=== PATIENT | female | born 1960 | race Caucasian/White ===

== ENCOUNTER 2022-11-10 12:05 | Emergency (ER) | payer MEDICAID ==
[~2022-11-10] VITALS: Ht 167.6 cm; Wt 95.5 kg
[~2022-11-10 12:05] MED LIST: ATOR10TA70 PO; LEVO25TA7 PO; LISI5TAB22 PO; LORA-512 PO; TRIAMCINOLONE OINT; VENL150C4 PO; [UNRECOGNIZED DRUG - CODE] RC; [UNRECOGNIZED DRUG - OTHER]
[2022-11-10 12:23] LABS: BASOPHILS # (AUTO) 0.1 X10'3 (0-0.2); BASOPHILS % (AUTO) 0.7 % (0-1); EOSINOPHILS # (AUTO) 0.1 X10'3 (0-0.9); EOSINOPHILS % (AUTO) 0.6 % (0-6); HEMATOCRIT 38.6 % (35.0-45.0); HEMOGLOBIN 12.5 g/dl (12.0-16.0); LYMPHOCYTES # (AUTO) 4.4 X10'3 (1.1-4.8); LYMPHOCYTES % (AUTO) 33.6 % (21-51); MEAN CORPUSCULAR HEMOGLOBIN 28.7 PG (27.0-31.0); MEAN CORPUSCULAR HGB CONC 32.4 g/dL (33.0-36.5); MEAN CORPUSCULAR VOLUME 88.3 FL (78-98); MEAN PLATELET VOLUME 8.2 FL (7.4-10.4); MONOCYTES # (AUTO) 0.6 X10'3 (0-0.9); MONOCYTES % (AUTO) 4.4 % (2-12); NEUTROPHILS % (AUTO) 60.7 % (42-75); PLATELET COUNT 371 X10'3 (140-440); RED BLOOD COUNT 4.37 X10'6 (4.20-5.60); RED CELL DISTRIBUTION WIDTH 14.5 % (11.5-14.5); WHITE BLOOD COUNT 13.2 X10'3 (4.5-11.0)
[2022-11-10 12:32] LABS: ALANINE AMINOTRANSFERASE 18 U/L (12-78); ALBUMIN 4.1 G/DL (3.4-5.0); ALBUMIN/GLOBULIN RATIO 1.1 (1.1-1.5); ALKALINE PHOSPHATASE 62 IU/L (46-116); ANION GAP 11 (8-16); ASPARTATE AMINO TRANSFERASE 19 U/L (10-37); BILIRUBIN,TOTAL 0.3 MG/DL (0.1-1.0); BLOOD UREA NITROGEN 34 MG/DL (7-18); CHLORIDE 105 MMOL/L (99-107); GLUCOSE 115 MG/DL (70-104); POTASSIUM 4.4 MMOL/L (3.5-5.1); SODIUM 139 MMOL/L (135-145); TOTAL CARBON DIOXIDE 22.9 MMOL/L (24-32); TOTAL PROTEIN 7.8 G/DL (6.4-8.2); eGFR 30 ML/MIN
[2022-11-10 15:49] VITALS: BP 129/49
[2022-11-10] MEDS ORDERED: NAPR-996 PO (16:43)
== END 2022-11-10 17:41 | disposition home or self-care (01) ==
LOC: ER 12:05
DX: R07.89 Other chest pain (principal); R00.2 Palpitations; M25.511 Pain in right shoulder; G43.909 Migraine, unspecified, not intractable, without status migrainosus; E78.00 Pure hypercholesterolemia, unspecified; I10 Essential (primary) hypertension; F32.9 Major depressive disorder, single episode, unspecified; F12.90 Cannabis use, unspecified, uncomplicated; Z72.89 Other problems related to lifestyle; Z79.899 Other long term (current) drug therapy; Z87.442 Personal history of urinary calculi; Z88.2 Allergy status to sulfonamides; Z88.5 Allergy status to narcotic agent; Z88.8 Allergy status to other drugs, medicaments and biological substances
CPT/HCPCS: 36415; 71045; 73030; 80053; 83735; 83880; 84484; 85025; 93005; 99285

== ENCOUNTER 2023-06-30 13:11 | Emergency (ER) | payer MEDICAID ==
[~2023-06-30] VITALS: Ht 167.6 cm; Wt 86.1 kg
[~2023-06-30 13:11] MED LIST changes: +NAPR-996 PO
[2023-06-30 14:43] LABS: BASOPHILS # (AUTO) 0.1 X10'3 (0-0.2); BASOPHILS % (AUTO) 0.7 % (0-1); EOSINOPHILS # (AUTO) 0.1 X10'3 (0-0.9); EOSINOPHILS % (AUTO) 0.9 % (0-6); HEMOGLOBIN 11.1 g/dl (12.0-16.0); LYMPHOCYTES # (AUTO) 3.2 X10'3 (1.1-4.8); MEAN CORPUSCULAR HEMOGLOBIN 28.9 PG (27.0-31.0); MEAN CORPUSCULAR HGB CONC 32.7 g/dL (33.0-36.5); MEAN CORPUSCULAR VOLUME 88.3 FL (78-98); MEAN PLATELET VOLUME 8.9 FL (7.4-10.4); MONOCYTES # (AUTO) 0.7 X10'3 (0-0.9); MONOCYTES % (AUTO) 5.5 % (2-12); NEUTROPHILS # (AUTO) 8.1 X10'3 (1.8-7.7); NEUTROPHILS % (AUTO) 66.9 % (42-75); PLATELET COUNT 345 X10'3 (140-440); RED BLOOD COUNT 3.85 X10'6 (4.20-5.60); RED CELL DISTRIBUTION WIDTH 14.3 % (11.5-14.5); WHITE BLOOD COUNT 12.1 X10'3 (4.5-11.0)
[2023-06-30 14:59] LABS: ALANINE AMINOTRANSFERASE 15 U/L (12-78); ALBUMIN 4.3 G/DL (3.4-5.0); ALBUMIN/GLOBULIN RATIO 1.2 (1.1-1.5); ALKALINE PHOSPHATASE 67 IU/L (46-116); ANION GAP 9 (8-16); ASPARTATE AMINO TRANSFERASE 22 U/L (10-37); BILIRUBIN,TOTAL 0.3 MG/DL (0.1-1.0); BLOOD UREA NITROGEN 21 MG/DL (7-18); BUN/CREATININE RATIO 12.7 (10.0-20.0); CHLORIDE 99 MMOL/L (99-107); CREATININE 1.65 MG/DL (0.40-0.90); GLUCOSE 106 MG/DL (70-104); POTASSIUM 4.3 MMOL/L (3.5-5.1); SODIUM 134 MMOL/L (135-145); TOTAL CARBON DIOXIDE 26.2 MMOL/L (24-32); TOTAL PROTEIN 7.9 G/DL (6.4-8.2); eCRCL 32 ML/MIN; eGFR 31 ML/MIN
[2023-06-30 15:17] VITALS: TEMP 98.9
[2023-06-30] MEDS ORDERED: normal saline 500ml IV soln 500 ML IV ONE (15:45)
[2023-06-30 17:32] LABS: MAGNESIUM 1.9 MG/DL (1.5-2.4)
[2023-06-30 18:35] VITALS: BP 154/68; PULSE 76; RESP 18; O2SAT 99
== END 2023-06-30 18:38 | disposition home or self-care (01) ==
LOC: ER 13:11
DX: E83.52 Hypercalcemia (principal); F41.9 Anxiety disorder, unspecified; F32.9 Major depressive disorder, single episode, unspecified; R00.2 Palpitations; G43.909 Migraine, unspecified, not intractable, without status migrainosus; E78.00 Pure hypercholesterolemia, unspecified; I10 Essential (primary) hypertension; F12.90 Cannabis use, unspecified, uncomplicated; Z87.442 Personal history of urinary calculi; Z72.89 Other problems related to lifestyle; Z88.2 Allergy status to sulfonamides; Z88.8 Allergy status to other drugs, medicaments and biological substances; Z79.899 Other long term (current) drug therapy
CPT/HCPCS: 36415; 80053; 82330; 83735; 83970; 84484; 85025; 93005; 96360; 96361; 99284; J7030; J7040

== ENCOUNTER 2024-09-11 12:27 | Inpatient (IN) | payer MEDICARE, MEDICAID ==
[~2024-09-11] VITALS: Ht 167.6 cm; Wt 80.5 kg
[~2024-09-11 12:27] MED LIST changes: +ACET-75 PO; +AMLO10TA13 PO; -ATOR10TA70 PO; +HYDR-3717 PO; +HYDRALAZINE 10 MG PO; -LEVO25TA7 PO; +LISI40TA13 PO; -LISI5TAB22 PO; +MAGN400T52 PO; -NAPR-996 PO; +TRAZ-251 PO; -VENL150C4 PO; +VENL225T3 PO; +[UNRECOGNIZED DRUG - CODE] PR; -[UNRECOGNIZED DRUG - CODE] RC; -[UNRECOGNIZED DRUG - OTHER]
[2024-09-11 13:21] LABS: BILIRUBIN,URINE NEGATIVE (Neg); CLARITY,URINE CLEAR (Clear); COLOR,URINE YELLOW (Yellow); GLUCOSE, URINE NEGATIVE (Neg); KETONES,URINE NEGATIVE (Neg); LEUKOCYTE ESTERASE ,URINE NEGATIVE (Neg); NITRITES, URINE NEGATIVE (Neg); OCCULT BLOOD,URINE NEGATIVE (Neg); PH,URINE 5.5 (4.8-8.0); PROTEIN,URINE TRACE mg/dl (Neg); UROBILINOGEN,URINE 0.2 E.U/dL (0.2-1.0)
[2024-09-11] MEDS: LORazepam 1 MG tablet PO STA (13:21)
[2024-09-11 13:25] LABS: UA COLLECTION TYPE CLN CATCH MIDSTREAM
[2024-09-11 13:28] LABS: BACTERIA,URINE FEW /HPF (Neg); RBC,URINE 0-2 /HPF (0-2); SQUAMOUS EPITHELIAL CELL,UR FEW /LPF (FEW); WBC,URINE NONE SEEN /HPF (0-4)
[2024-09-11 13:33] LABS: BASOPHILS # (AUTO) 0.1 X10'3 (0-0.2); BASOPHILS % (AUTO) 0.7 % (0-1); EOSINOPHILS # (AUTO) 0.1 X10'3 (0-0.9); EOSINOPHILS % (AUTO) 0.4 % (0-6); HEMATOCRIT 34.1 % (35.0-45.0); HEMOGLOBIN 11.2 g/dl (12.0-16.0); LYMPHOCYTES # (AUTO) 2.3 X10'3 (1.1-4.8); LYMPHOCYTES % (AUTO) 15.9 % (21-51); MEAN CORPUSCULAR HEMOGLOBIN 28.1 PG (27.0-31.0); MEAN CORPUSCULAR HGB CONC 32.9 g/dL (33.0-36.5); MEAN CORPUSCULAR VOLUME 85.2 FL (78-98); MEAN PLATELET VOLUME 8.3 FL (7.4-10.4); MONOCYTES # (AUTO) 0.7 X10'3 (0-0.9); MONOCYTES % (AUTO) 5.1 % (2-12); NEUTROPHILS # (AUTO) 11.3 X10'3 (1.8-7.7); NEUTROPHILS % (AUTO) 77.9 % (42-75); PLATELET COUNT 331 X10'3 (140-440); RED CELL DISTRIBUTION WIDTH 18.1 % (11.5-14.5); WHITE BLOOD COUNT 14.4 X10'3 (4.5-11.0)
[2024-09-11] MEDS ORDERED: DIPH25CA83 PO (13:36)
[2024-09-11] MEDS ORDERED: CALC0.2536 PO (13:36)
[2024-09-11] MEDS ORDERED: LAMO25TA72 PO (13:36)
[2024-09-11] MEDS ORDERED: SERT25TA PO (13:36)
[2024-09-11 13:51] LABS: ALANINE AMINOTRANSFERASE 46 U/L (12-78); ALBUMIN 4.2 G/DL (3.4-5.0); ALBUMIN/GLOBULIN RATIO 1.1 (1.1-1.5); ALKALINE PHOSPHATASE 91 IU/L (46-116); ANION GAP 14 (8-16); ASPARTATE AMINO TRANSFERASE 23 U/L (10-37); BILIRUBIN,TOTAL 0.3 MG/DL (0.1-1.0); BLOOD UREA NITROGEN 53 MG/DL (7-18); BUN/CREATININE RATIO 30.1 (10.0-20.0); CALCIUM 9.1 MG/DL (8.5-10.1); CHLORIDE 106 MMOL/L (99-107); CREATININE 1.76 MG/DL (0.40-0.90); GLUCOSE 92 MG/DL (70-104); POTASSIUM 4.6 MMOL/L (3.5-5.1); SODIUM 138 MMOL/L (135-145); TOTAL CARBON DIOXIDE 18.3 MMOL/L (24-32); TOTAL PROTEIN 8.1 G/DL (6.4-8.2); eCRCL 30 ML/MIN; eGFR 29 ML/MIN
[2024-09-11 14:00] LABS: HCG SERUM QL NEGATIVE
[2024-09-11 14:01] LABS: ETHANOL < 10 MG/DL (<10)
[2024-09-11] MEDS ORDERED: acetaminophen 325mg tablet PO PRN (14:30)
[2024-09-11] MEDS ORDERED: diphenhydrAMINE 25mg capsule PO PRN (14:30)
[2024-09-11 14:33] LABS: URINE AMPHETAMINE SCREEN NEGATIVE (Neg); URINE BARBITUATE SCREEN NEGATIVE (Neg); URINE BENZODIAZEPINES SCREEN NEGATIVE (Neg); URINE CANNABINOID SCREEN NEGATIVE (Neg); URINE COCAINE SCREEN NEGATIVE (Neg); URINE METHADONE SCREEN NEGATIVE (Neg); URINE OPIATE SCREEN NEGATIVE (Neg); URINE PHENCYCLIDINE SCREEN NEGATIVE (Neg)
[2024-09-11] MEDS: acetaminophen 325mg tablet PO PRN (15:28)
[2024-09-11] MEDS: LORazepam 1 MG tablet PO ONE (19:13)
[2024-09-11 20:30] VITALS: BP 120/61; PULSE 99; RESP 16; TEMP 98.5; O2SAT 98
[2024-09-11] MEDS ORDERED: mag hydrox/Alum hydrox/simeth 30ml oral suspension PO PRN (20:45)
[2024-09-11] MEDS ORDERED: magnesium hydroxide 30ml (MOM) UD suspension PO PRN (20:45)
[2024-09-11 21:00] VITALS: PULSE 88
[2024-09-11] MEDS ORDERED: LAMOTRIGINE 25 MG PO SCH (21:00)
[2024-09-11] MEDS: traZODone 50mg tablet PO SCH (21:43)
[2024-09-11] MEDS: hyDRALAzine 10mg tablet PO SCH (21:44)
[2024-09-11 21:51] VITALS: RESP 16; O2SAT 98
[2024-09-12 07:00] VITALS: RESP 16; O2SAT 98
[2024-09-12] MEDS: amLODIPine 5mg tablet PO SCH (07:43)
[2024-09-12] MEDS: calcitriol 0.25mcg capsule PO SCH (07:43)
[2024-09-12] MEDS: loratadine 10mg tablet PO SCH (07:43)
[2024-09-12] MEDS: sertraline 25mg tablet PO SCH (07:43)
[2024-09-12] MEDS: lisinopril 20mg tablet PO SCH (07:44)
[2024-09-12 08:00] VITALS: BP 111/57; PULSE 96; RESP 16; TEMP 97.6; O2SAT 98
[2024-09-12] MEDS: acetaminophen 325mg tablet PO PRN (10:45)
[2024-09-12 11:04] LABS: CHOL/HDL RATIO 2.9 (0.00-4.99); CHOLESTEROL 186 MG/DL (0-200); HDL CHOLESTEROL 65 MG/DL (35-60); LDL CHOLESTEROL 85 MG/DL (50-100); TRIGLYCERIDES 148 MG/DL (20-135)
[2024-09-12 11:16] LABS: HEMOGLOBIN A1C 5.4 % (4.5-6.2)
[2024-09-12] MEDS: LORazepam 1 MG tablet PO ONE (17:07)
[2024-09-12] MEDS: lactose-reduced food (Ensure Enlive) - 237ml bottle PO SCH (18:00)
[2024-09-12 19:00] VITALS: RESP 17; O2SAT 97; O2SAT 99
[2024-09-12] MEDS: loperamide 2mg capsule PO PRN (19:14)
[2024-09-12 19:26] VITALS: BP 128/48; PULSE 99; RESP 17; TEMP 97.8; O2SAT 98
[2024-09-12] MEDS: gabapentin 300mg capsule PO SCH (20:57)
[2024-09-13 07:00] VITALS: RESP 12; O2SAT 99
[2024-09-13] MEDS: LORazepam 1 MG tablet PO SCH (07:52)
[2024-09-13 08:00] VITALS: BP 113/58; PULSE 96; RESP 12; TEMP 97.5; O2SAT 99
[2024-09-13 08:19] LABS: HBSAG SCREEN Negative (Negative); HEP B CORE AB, IGM Negative (Negative); HEP B CORE AB, TOT Negative (Negative); HEP B SURF AB Non Reactive (.)
[2024-09-13 08:32] LABS: BASOPHILS # (AUTO) 0.1 X10'3 (0-0.2); BASOPHILS % (AUTO) 0.7 % (0-1); EOSINOPHILS # (AUTO) 0.2 X10'3 (0-0.9); EOSINOPHILS % (AUTO) 1.6 % (0-6); HEMATOCRIT 34.2 % (35.0-45.0); HEMOGLOBIN 11.1 g/dl (12.0-16.0); LYMPHOCYTES # (AUTO) 3.1 X10'3 (1.1-4.8); LYMPHOCYTES % (AUTO) 29.5 % (21-51); MEAN CORPUSCULAR HEMOGLOBIN 27.7 PG (27.0-31.0); MEAN CORPUSCULAR HGB CONC 32.4 g/dL (33.0-36.5); MEAN CORPUSCULAR VOLUME 85.6 FL (78-98); MEAN PLATELET VOLUME 8.6 FL (7.4-10.4); MONOCYTES # (AUTO) 0.8 X10'3 (0-0.9); MONOCYTES % (AUTO) 7.5 % (2-12); NEUTROPHILS # (AUTO) 6.5 X10'3 (1.8-7.7); NEUTROPHILS % (AUTO) 60.7 % (42-75); PLATELET COUNT 319 X10'3 (140-440); RED BLOOD COUNT 3.99 X10'6 (4.20-5.60); RED CELL DISTRIBUTION WIDTH 18.2 % (11.5-14.5); WHITE BLOOD COUNT 10.6 X10'3 (4.5-11.0)
[2024-09-13 08:57] LABS: CHOL/HDL RATIO 3.1 (0.00-4.99); CHOLESTEROL 180 MG/DL (0-200); FREE T4 (FREE THYROXINE) 0.77 NG/DL (0.73-1.40); HDL CHOLESTEROL 59 MG/DL (35-60); LDL CHOLESTEROL 80 MG/DL (50-100); THYROID STIMULATING HORMONE 2.23 ulU/ml (0.34-4.50); TRIGLYCERIDES 178 MG/DL (20-135)
[2024-09-13] MEDS: sertraline 25mg tablet PO ONE (13:02)
[2024-09-13] MEDS: hydrOXYzine 25 MG tablet PO PRN (18:54)
[2024-09-13 19:00] VITALS: RESP 17; O2SAT 98
[2024-09-13 20:00] VITALS: BP 142/86; PULSE 70; RESP 17; TEMP 97.6; O2SAT 98
[2024-09-13] MEDS: LORazepam 0.5 MG tablet PO SCH (20:34)
[2024-09-13] MEDS: propranolol 10mg tablet PO SCH (20:39)
[2024-09-14 07:00] VITALS: RESP 16; O2SAT 99
[2024-09-14] MEDS: sertraline 25mg tablet PO SCH (07:34)
[2024-09-14 08:00] VITALS: BP 122/42; PULSE 93; RESP 16; TEMP 97.1; O2SAT 99
[2024-09-14 19:30] VITALS: BP 122/54; PULSE 98; RESP 16; TEMP 98.2; O2SAT 96
[2024-09-15 07:00] VITALS: RESP 16; O2SAT 100
[2024-09-15 07:35] VITALS: BP 123/57; PULSE 91; RESP 16; TEMP 97.9; O2SAT 100
[2024-09-15] MEDS: sertraline 25mg tablet PO ONE (11:39)
[2024-09-15 12:19] VITALS: BP 112/51; PULSE 102
[2024-09-15 19:00] VITALS: RESP 16; O2SAT 98
[2024-09-15 20:00] VITALS: BP 101/54; PULSE 94; RESP 16; TEMP 98.2; O2SAT 96
[2024-09-16 07:00] VITALS: BP 134/63; PULSE 100; RESP 16; TEMP 97.9; O2SAT 98
[2024-09-16] MEDS: sertraline 25mg tablet PO SCH (07:22)
[2024-09-16 19:00] VITALS: RESP 22; O2SAT 96
[2024-09-16 20:00] VITALS: BP 133/48; PULSE 97; RESP 22; TEMP 97.9
[2024-09-17 07:00] VITALS: RESP 16; O2SAT 98
[2024-09-17 08:00] VITALS: BP 123/60; PULSE 99; RESP 16; TEMP 98.2; O2SAT 98
[2024-09-17 11:26] LABS: ALANINE AMINOTRANSFERASE 67 U/L (12-78); ALBUMIN 3.8 G/DL (3.4-5.0); ALKALINE PHOSPHATASE 94 IU/L (46-116); ANION GAP 9 (8-16); ASPARTATE AMINO TRANSFERASE 34 U/L (10-37); BILIRUBIN,TOTAL 0.2 MG/DL (0.1-1.0); BLOOD UREA NITROGEN 54 MG/DL (7-18); BUN/CREATININE RATIO 37.2 (10.0-20.0); CALCIUM 8.9 MG/DL (8.5-10.1); CHLORIDE 105 MMOL/L (99-107); CREATININE 1.45 MG/DL (0.40-0.90); GLUCOSE 123 MG/DL (70-104); POTASSIUM 4.8 MMOL/L (3.5-5.1); SODIUM 140 MMOL/L (135-145); TOTAL CARBON DIOXIDE 26.4 MMOL/L (24-32); TOTAL PROTEIN 7.8 G/DL (6.4-8.2); eCRCL 36 ML/MIN; eGFR 36 ML/MIN
[2024-09-17 18:48] VITALS: RESP 18
[2024-09-17 19:14] VITALS: BP 142/50; PULSE 100; RESP 12; TEMP 98.1; O2SAT 97
[2024-09-18 07:00] VITALS: RESP 14; O2SAT 97
[2024-09-18 08:00] VITALS: BP 141/52; PULSE 93; RESP 14; TEMP 97.1; O2SAT 97
[2024-09-18 18:25] VITALS: RESP 18
[2024-09-18] MEDS ORDERED: SUMAtriptan 25 MG tablet PO PRN (18:50)
[2024-09-18 20:00] VITALS: BP 143/49; PULSE 104; RESP 15; TEMP 98.1; O2SAT 97
[2024-09-19 07:00] VITALS: RESP 18; O2SAT 98
[2024-09-19] MEDS: sertraline 50mg tablet PO SCH (07:40)
[2024-09-19 08:00] VITALS: BP 139/52; PULSE 88; RESP 18; TEMP 97.9; O2SAT 98
[2024-09-19] MEDS ORDERED: SUMAtriptan 25 MG tablet PO PRN (15:30)
[2024-09-19 18:30] VITALS: RESP 18; O2SAT 98
[2024-09-19 19:25] VITALS: BP 120/59; PULSE 89; RESP 19; TEMP 97; O2SAT 99
[2024-09-20 07:00] VITALS: RESP 12; O2SAT 99
[2024-09-20 08:00] VITALS: BP 132/52; PULSE 97; RESP 12; TEMP 97.5; O2SAT 99
[2024-09-20 18:53] VITALS: RESP 12; O2SAT 97
[2024-09-20 19:30] VITALS: BP_SYST 130; BP_DIAS 47; BP_DIAS 57; PULSE 104; RESP 16; TEMP 98.2; O2SAT 95
[2024-09-21 06:55] VITALS: BP 136/60; PULSE 92; RESP 16; TEMP 97.9; O2SAT 90
[2024-09-21 09:20] VITALS: RESP 16; O2SAT 95
[2024-09-21] MEDS: acetaminophen 325mg tablet PO PRN (09:32)
[2024-09-21 13:00] VITALS: BP 115/54; PULSE 112; RESP 16
[2024-09-21 13:02] VITALS: BP_SYST 115; PULSE 112
[2024-09-21] MEDS ORDERED: SERT-434 PO (14:08)
[2024-09-21] MEDS ORDERED: ATI1T PO (14:08)
== END 2024-09-21 13:50 | disposition home or self-care (01) | DRG 881 ==
LOC: ER 12:28 → ADULT MH 16:44 → UNDOADMIN 16:44 → ADULT MH 20:20
PROVIDERS: ADMIT Psychiatry & Neurology Psychiatry; ATTEND Psychiatry & Neurology Psychiatry
PROC: GZHZZZZ Group Psychotherapy (ICD-10-PCS; principal; 2024-09-12)
PROC: GZ51ZZZ Individual Psychotherapy, Behavioral (ICD-10-PCS; 2024-09-12)
DX: F32.A Depression, unspecified (principal); N18.4 Chronic kidney disease, stage 4 (severe); R45.851 Suicidal ideations; G43.909 Migraine, unspecified, not intractable, without status migrainosus; Z66 Do not resuscitate; I12.9 Hypertensive chronic kidney disease with stage 1 through stage 4 chronic kidney disease, or unspecified chronic kidney disease; Z20.822 Contact with and (suspected) exposure to COVID-19; E78.00 Pure hypercholesterolemia, unspecified; F41.9 Anxiety disorder, unspecified; D72.829 Elevated white blood cell count, unspecified; E21.3 Hyperparathyroidism, unspecified; Z79.899 Other long term (current) drug therapy; Z88.2 Allergy status to sulfonamides; Z88.1 Allergy status to other antibiotic agents; Z87.442 Personal history of urinary calculi
CPT/HCPCS: 36415; 80053; 80061; 80305; 80320; 81001; 83036; 84439; 84443; 84703; 85025; 86704; 86705; 86706; 87081; 87340; 87811; 99285; Q0177